=== PATIENT | male | born 1995 | race Caucasian/White ===

== ENCOUNTER 2019-02-12 01:55 | Emergency (ER) | payer SELFPAY ==
[~2019-02-12] VITALS: Ht 180.3 cm; Wt 64.0 kg
[2019-02-12 01:58] VITALS: Ht 180.3 cm; Wt 64.0 kg
[2019-02-12 03:00] LABS: CALCIUM 8.4 mg/dL (8.5-10.1); CARBON DIOXIDE 28.7 mmol/L (21-32); CHLORIDE SERUM 107 mmol/L (98-107); CREATININE SERUM 0.7 mg/dL (0.7-1.3); GFR1 > 60 mL/min; GLUCOSE SERUM 100 mg/dL (74-106); SODIUM SERUM 142 mmol/L (136-145)
[2019-02-12 03:05] LABS: ALBUMIN 3.7 g/dL (3.4-5.0); ALKALINE PHOSPHATASE 103 U/L (46-116); ALT/SGPT 25 U/L (16-63); AST/SGOT 25 U/L (15-37); BILIRUBIN TOTAL 0.64 mg/dL (0.20-1.00); TOTAL PROTEIN, SERUM 6.8 g/dL (6.4-8.2)
[2019-02-12 03:18] LABS: BASOPHIL % 0.3 % (0-2); PLATELET COUNT 273 x10^3mcL (130-400)
[2019-02-12 04:00] VITALS: BP 116/68
== END 2019-02-12 04:00 | disposition home or self-care (01) ==
LOC: ED 01:55
PROVIDERS: Emergency Medicine
DX: L03.113 Cellulitis of right upper limb (principal); F17.210 Nicotine dependence, cigarettes, uncomplicated
CPT/HCPCS: 90715; J0696; J7030; J7060; Q0092